=== PATIENT | male | born 1970 | race Caucasian/White ===

== ENCOUNTER 2023-11-17 04:13 | Emergency (ER) | payer MEDICAID, SELFPAY ==
[2023-11-17 04:19] VITALS: BP 148/93; PULSE 79; TEMP 36.6; O2SAT 97; BMI 25.8
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
--- NOTE | 2023-11-17 04:48 | ED.GENADUL1 ---
HPI HPI - General Adult General Chief complaint: Extremity Problem, Nontraumatic Stated complaint: BODY PAIN Time Seen by Provider: 11/17/23 04:16 Source: patient Mode of arrival: walk-in Limitations: no limitations Related Data Allergies Allergy/AdvReac Type Severity Reaction Status Date / Time tramadol Allergy Severe Difficulty Verified 11/17/23 04:19 Breathing Opioid HPI Opioid Management Most Recent Opioid Data: Last Pain Scale 8 11/17/23 04:47 Last MAR Pain Assessment 11/17/23 05:35 Exam Constitutional Vital Signs, click to edit/add: Last Vital Signs Temp 98 F 11/17/23 04:19 Pulse 79 11/17/23 04:19 Resp 18 11/17/23 04:19 BP 148/93 H 11/17/23 04:19 Pulse Ox 97 11/17/23 04:19 O2 Del Method Room Air 11/17/23 04:19 Course Vital Signs Vital signs: Vital Signs Temperature 98 F 11/17/23 04:19 Pulse Rate 79 11/17/23 04:19 Respiratory Rate 18 11/17/23 04:19 Blood Pressure 148/93 H 11/17/23 04:19 Pulse Oximetry 97 11/17/23 04:19 Oxygen Delivery Method Room Air 11/17/23 04:19 Temperature 98 F 11/17/23 04:19 Pulse Rate 79 11/17/23 04:19 Respiratory Rate 18 11/17/23 04:19 Blood Pressure 148/93 H 11/17/23 04:19 Pulse Oximetry 97 11/17/23 04:19 Oxygen Delivery Method Room Air 11/17/23 04:19 Discharge Plan Discharge Chief Complaint: Extremity Problem, Nontraumatic Clinical Impression: Acute postoperative pain of left hip Patient Disposition: Home, Self-Care Time of Disposition Decision: 05:10 Condition: Good Mode of Transportation: Private Vehicle Print Language: Liberian Instructions: Pain Management (ED), Narcotic Safety (ED), Arthralgia (ED), Non-pharmacological Pain Management Therapies for Adults (ED), Pain Management After Surgery (DC) Referrals: Sarah Zaman MD [Physician] - As soon as possible Physician,Non-Staff, [Primary Care Provider] - 1 week Discharge Date/Time: 11/17/23 05:37
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
[2023-11-17] MEDS: OXYCODONE HCL/ACETAMINOPHEN 5MG/325MG 2 TAB PO (05:35)
== END 2023-11-17 05:37 | disposition home or self-care (01) ==
PROVIDERS: Emergency Provider Emergency Medicine
DX: G89.18 Other acute postprocedural pain (principal); M25.552 Pain in left hip
CPT/HCPCS: 99283

== ENCOUNTER 2023-12-10 14:19 | Outpatient (RCR) | payer MEDICAID, SELFPAY | END 2023-12-11 12:15 | disposition home or self-care (01) | LOC: PT 14:19 | PROVIDERS: Visit Provider Orthopaedic Surgery | DX: S32.402D Unspecified fracture of left acetabulum, subsequent encounter for fracture with routine healing (principal); M75.102 Unspecified rotator cuff tear or rupture of left shoulder, not specified as traumatic ==

== ENCOUNTER 2024-05-04 12:54 | Outpatient (OUT) | payer OTHER, SELFPAY ==
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
== END 2024-05-04 12:55 | disposition home or self-care (01) ==
PROVIDERS: Visit Provider Nurse Practitioner
DX: M25.552 Pain in left hip (principal); Z51.81 Encounter for therapeutic drug level monitoring
CPT/HCPCS: G0463

== ENCOUNTER 2024-12-13 05:52 | Emergency (ER) | payer SELFPAY ==
--- OUTSIDE RECORDS SUMMARY | 2024-11-15 | XMS_ITS ---
Author Name Auto Generated Organization OHIP Care Team Providers Care Winder Helper Name Role Phone GLADYS, SOL Randle Referring Unavailable GLADYS, SOL Randle Primary Care Unavailable GLADYS, SOL Randle Referring Unavailable GLADYS, SOL Randle Primary Care Unavailable GLADYS, SOL Randle Primary Care Unavailable GLADYS, SOL Randle Referring Unavailable GLADYS, SOL Randle Primary Care Unavailable TIEN BURTON INSPECTOR PUBLICATIONS Attending UnavaTIEN Zuniga INSPECTOR PUBLICATIONS Referring Unavai FIDELIA Combs Attending Unavailable GLADYS, SOL Randle Attending Unavailable GLADYS, SOL Randle Attending Unavailable GLADYS, SOL Randle Primary Care Unavailable DALDAILY, Suraj BLAKELY Admitting Unavailabl e KELSIE, Suraj BLAKELY Attending Unavailabl e TIEN BURTON Referring Unavailab le TIEN BURTON Referring Unavailab MISAEL Bhatia Referring Unavailable GLADYS, SOL Randle Attending Unavailable GLADYS, SOL Randle Attending Unavailable DALAGIANNTHANIA, Suraj BLAKELY MD Attending Unavail able GLADYS, SOL Randle Referring Unavailable RADHA COUCH Attending Unavailable CHARISMAAGIANNTHANIA, Suraj BLAKELY MD Admitting Unavail able DALAGIANNTHANIA, Suraj BLAEKLY MD Attending Unavail able HAGER, BHARTI Andrew Referring Unavailable HAGER, BHARTI Andrew Referring Unavailable HAGER, BHARTI Andrew Referring Unavailable CORREA, FIDELIA Referring Unavailable CORREA, FIDELIA Referring Unavailable CORREA, FIDELIA Referring Unavailable PROBLEMS DATE TYPE CONDITION / CODE ATTENDING STATUS [facility] 08/15/2024 Unknown Other acute postprocedural pain / G89.18(ICD-10) Suraj IGLESIAS [facility] 07/03/2024 Unknown Other fatigue / R53.83(ICD-10) [facility] 05/15/2024 Unknown Encounter for screening for malignant neoplasm of prostate / Z12.5(ICD-10) [facility] 05/15/2024 Unknown Mild intermitten t asthma, uncomplicated / J45.20(ICD-10) [facility] 05/15/2024 Unknown Snoring / R06.83(ICD-10) [facility] 09/19/2023 Unknown Unspecified frac ture of facial bones, initial encounter for closed fracture / S02.92XA(ICD-10) [facility] 04/11/2024 Admitting diagnosis Unspecified fracture of facial bones, initial encounter for closed fracture / S02.92XA(ICD-10) [facility] 03/28/2024 Unknown Pain in left margarita ulder / M25.512(ICD-10) [facility] 09/18/2023 Unknown Unspecified frac ture of left acetabulum, initial encounter for closed fracture / S32.402A(ICD-10) [facility] 01/11/2024 Unknown Pain in left hip / M25.552(ICD-10) [facility] 01/11/2024 Unknown Weakness / R53.1(ICD-10) [facility] 01/11/2024 Unknown Stiffness of lef t hip, not elsewhere classified / M25.652(ICD-10) [facility] PROCEDURES No Procedure Records Found RESULTS PULMONARY FUNCTION Observed: 05/15/2024 6:41 PM Status: F [facility] [address] [id number] PULMONARY FUNCTION PATIENT NAME:NAOMI SONG Maria A :1970 MED REC NO:[id number] ROOM: ACCOUNT NO:[id number] ADMIT DATE:05/15/2024 PROVIDER:Alessandro Villasenor MD DATE OF PROCEDURE: 05/15/2024 SURGEON: Alessandro Villasenor MD REFERRING PHYSICIAN: Sol Cisse CNP Spirometry shows FVC is 4.89, 117% predicted. FEV1 is 2.82, 85% predicted which is within normal limits. FEV1/FVC ratio is consistent with obstructive ventilatory impairment. Postbronchodilator, there is significant improvement in both FEV1 and FVC and consistent with airway reversibility/bronchospasticity. Lung volume shows residual volume is 3.23, 159% predicted. Total lung capacity is 8.00, 121% predicted, consistent with mild to moderate airway trapping. Diffusion capacity is 32.19, 119% predicted, which is within normal limits. IMPRESSION: This pulmonary function test is consistent with obstructive ventilatory impairment with significant response to bronchodilator. Lung volume is consistent with mild to moderate airway trapping. Diffusion capacity is normal. Clinical correlation is recommended. ALESSANDRO VILLASENOR MD ISSA/VILLA Doc#: [id number] LIPID PROFILE Collected: 05/15/2024 8:53 AM Status: F Source: [facility] TYPE CODE TESTS RESULT OUT OF RANGE REFERENCE UNITS LAB CHOL(LOINC) Cholesterol 188 0-199 mg/dL Result Comment: Cholesterol Guidelines: <200 Desirable 200-240 Borderline >240 Undesirable LAB HDL(LOINC) Cholesterol,HDL 28 Low >40 mg/dL Result Comment: HDL Guidelines: <40 Undesirable 40-59 Borderline >59 Desirable LAB LDL(LOINC) Cholesterol,LDL 96 0-100 mg/dL Result Comment: LDL Guidelines: <100 Desirable 100-129 Near to/above Desirable 130-159 Borderline >159 Undesirable Direct (measured) LDL and calculated LDL are not interchangeable tests. LAB CHR(LOINC) Chol/HDL Ratio 6.7 LAB TRIG(LOINC) Triglycerides 319 High <150 mg/dL Result Comment: Triglyceride Guidelines: <150 Desirable 150-199 Borderline 200-499 High >499 Very high Based on AHA Guidelines for fasting triglyceride, December 2011. LAB VLDL(LOINC) Cholesterol,VLDL 64 High 1-30 mg/ dL Performed By: #### LIPR #### [facility] [address] [place] [address] Associate Business Analyst: Florian Salomon MD BASIC METABOLIC PROF Collected: 025 8:53 AM Status: F Source: [facility] TYPE CODE TESTS RESULT OUT OF RANGE REFERENCE UNITS LAB NA(LOINC) NA (Sodium) 143 136-145 mmol/L LAB K(LOINC) K (Potassium) 3.7 3.7-5.3 mmol/L LAB CL(LOINC) Chloride 106 98-107 mmol/L LAB HCO(LOINC) CO2 27 20-31 mmol/L LAB GAP(LOINC) Anion Gap 10 9-16 mmol/L LAB GLU(LOINC) Glucose 116 High 74-99 mg/dL LAB BUN(LOINC) BUN (Urea N) 14 6-20 mg/dL LAB CRE(LOINC) Creatinine 0.7 0.70-1.20 mg/dL LAB EGFR(LOINC) eGFR >90 >60 mL/min/1. 73m2 Result Comment: These results are not intended for use in patients <18 years of age. eGFR results are calculated without a race factor using the 2020 CKD-EPI equation. Careful clinical correlation is recommended, particularly when comparing to results calculated using previous equations. The CKD-EPI equation is less accurate in patients with extremes of muscle mass, extra-renal metabolism of creatine, excessive creatine ingestion, or following therapy that affects renal tubular secretion. LAB BUNCRE(LOINC) BUN/CRE Ratio 20 9-20 LAB CA(LOINC) Calcium 9.0 8.6-10.4 mg/dL Performed By: #### LIVMaria A, [facility] #### [facility] [address] [place] [address] Associate Business Analyst: Everardo Joseph MD #### PSAS #### [id number] [place] [address] Associate Business Analyst: Florian Salomon MD LIVER PROFILE Collected: 8:53 AM Status: F Source: [facility] TYPE CODE TESTS RESULT OUT OF RANGE REFERENCE UNITS LAB ALB(LOINC) Albumin 4.1 3.5-5.2 g/dL LAB ALP(LOINC) Alkaline Phos 93 40-129 U/L LAB ALT(LOINC) ALT 21 10-50 U/L LAB AST(LOINC) AST 17 10-50 U/L LAB TBIL(LOINC) Bilirubin, Total 0.3 0.00-1.20 mg/dL LAB DBILI(LOINC) Bilirubin, Direct <0.2 0.00-0.30 mg/dL LAB IBIL(LOINC) Bilirubin, Indirect Can not be calculated 0.0-1.0 mg/dL LAB TP(LOINC) Protein, Total 6.9 6.6-8.7 g/dL LAB AG(LOINC) Albumin/Glob Ratio 1.5 1.0-2.5 Performed By: #### LIVP, BMP #### [address] [place] [address] Associate Business Analyst: Everardo Joseph MD #### PSAS #### [address] [address] Associate Business Analyst: Florian Salomon MD PSA, SCREENING Collected: 05/15/2024 8:53 AM Status: F Source: [facility] TYPE CODE TESTS RESULT OUT OF RANGE REFERENCE UNITS LAB PSA(LOINC) Prostatic Spec. Ag 2.59 0.00-4.00 ng/mL Result Comment: The Norris E CLIA assay is used. Results obtained with different assay methods cannot be used interchangeably. Performed By: #### LIVP, BMP #### [address] [place] [address] Associate Business Analyst: Everardo Joseph MD #### PSAS #### [address] [address] Associate Business Analyst: Florian Salomon MD XR SINUSES (MIN 3 VIEWS ) Observed: 03/16 3:39 PM Status: F Source: [facility] EXAMINATION: THREE XRAY VIEWS OF THE SINUSES 04/11/2024 11:01 am COMPARISON: CT facial bones on 09/18/2023 HISTORY: ORDERING SYSTEM PROVIDED HISTORY: Closed extensive facial fractures, initial encounter TECHNOLOGIST PROVIDED HISTORY: pain to left side of face Reason for Exam: LEft sided faacial/ sinus pain. left facial fractures FINDINGS: Fractures of the right zygomatic arch, right maxillary sinus apex, ethmoid bones, left palate, bilateral medial and lateral pterygoid plates, and a left ZMC fracture (which also involves all left maxillary sinus woo) are better seen on the prior CT. A left maxillary fixator is in place. No new osseous injury is visualized. The paranasal sinuses appear grossly well aerated. IMPRESSION: Facial bone fractures are better depicted on the prior CT. Postoperative changes are evident. There is no evidence of new osseous injury. Interpreted by: Andrés Ricci MD Signed by: Andrés Ricci MD 04/12/24 Final result XR PELVIS (MIN 3 VIEWS) Observed: 2024 4:42 PM Status: F Source: [facility] History: 53-year-old male st atus post fixation left posterior wall acetabulum Comparison: 11/05/2023 Findings: 3 views of the pelvis and left hip (AP, lateral and Judet) in a skeletally mature patient showing redemonstration orthopedic hardware in the form of plate and screws the left posterior wall acetabulum. No evidence of hardware failure or loosening. No subluxation or dislocation. Alignment well-maintained Impression: Stable hardware to left acetabulum without complication Interpreted by: Misael Mcneil DO Signed by: Misael Mcneil DO 04/03/24 Final result ALLERGIES DATE TYPE / CODE NAME / CODE REACTION SEVERITY SOURCE Drug Class/936361244(S NOMED CT) NO ALLERGY INFORMATION AVAILABLE [facility] ENCOUNTERS ADMIT/DISCHARGE ACCOUNT NUMBER ADMITTING ENCOUNTER CLASS LOCATION SOURCE 11/15/2024 [id number] Ambulatory Building:[facility] 11/08/2024/11/09/19 [id number] Ambulatory Building[facility]10/04/19 [id number] Ambulatory Building:[facility] 09/19/2024 [id number] Ambulatory Building[facility]/15[facility]24/08/16/19 [id number] Suraj IGLESIAS Ambulatory Building:[facility] RRoom: ORPOOLRMBed: NONE [facility] 08/15/2024 [id number] Suraj IGLESIAS MD Ambulatory Building:[facility] ZPBORRoo: [id number]: [id number] [facility] 07/03/2024/07/04/19 25 [id number] Ambulatory Building:[facility] 06/27/2024/06/28/19 25 [id number] Ambulatory Building:[facility] 05/29/2024/05/30/19 25 [id number] Ambulatory Building:[facility] 05/15/2024 [id number] Ambulatory Building:[address] 05/15/2024/05/16/19 25 [id number] Ambulatory Building:[facility] 05/15/2024/05/16/19 25 [id number] Ambulatory Building:[facility] 04/25/2024/04/25/19 25 [id number] Ambulatory Building:[facility] 04/17/2024 [id number] Ambulatory Building:[address] 04/12/2024/04/11/19 25 [id number] Ambulatory Building:[facility] 04/11/2024/04/13/19 25 [id number] Ambulatory Building:[facility] 04/11/2024/04/13/19 25 [id number] Ambulatory Building:[facility] 03/28/2024 [id number] Ambulatory Building:[address] 03/27/2024/03/27/19 25 [id number] Ambulatory Building:[facility] 03/27/2024 [id number] Ambulatory Building:[facility] 03/16/2024 [id number] Ambulatory Building:[address] 02/14/2024 [id number] Amb[facility] 01/11/2024 [id number] Ambulatory Building:[address] PAYERS ENCOUNTER GUARANTOR PAYER SUBSCRIBER SOURCE 11/15/2024 NAOMI SONGDOB: [address], [place] [address]Qjl: (HP) Primary Insurance:Xogen TechnologiesPROGRESS WEST HOSPITALChangeTip Number: [id number] Date:2024-01-14 NAOMI SONGDOB: [id number], [place] [address]Rtz: (HP) [facility] 08/15/2024 NAOMI SONGDOB: [address], [place] [address]Rwr: (HP) Primary Insurance:[employer] BlueMessaging Number: [id number] Date:2024-01-14 NAOMI SONGDOB: [id number], [place] [address]Cmr: (HP) [facility] 07/03/2024 NAOMI SONGDOB: [address], [place] [address]Rui: (HP) Primary Insurance:Xogen TechnologiesPROGRESS WEST HOSPITALChangeTip Number: [id number] Date:2024-01-14 NAOMI SONGDOB: [id number], [place] [address]Rue: (HP) [facility] 05/15/2024 NAOMI SONG JR.: [facility] [address] [address]Zbj: (HP) Primary Insurance:[facility] MEDICAIDAndelaicy Number: [id number] Date:2024-01-14 NAOMI SONG JR.: [id number], [place] [address]Myy: (HP) [facility] 05/15/2024 NAOMI SONGDOB: [address], [place] [address]Wii: (HP) Primary Insurance:[facility] CENTERPolicy Number: [id number] Date:2024-01-14 NAOMI RAYB: [id number], [place] [address]Xms: (HP) [facility] 05/15/2024 NAOMI RAYB: [address], [place] [address]Xkj: (HP) Primary Insurance:[facility]Policy Number: [id number] Date:2024-01-14 NAOMI RAYB: [id number], [place] [address]Xao: (HP) [facility] 04/17/2024 NAOMI SONG JR.: [address], [place] [address]Kkb: (HP) Primary Insurance:[facility] MEDICAIDPolicy Number: [id number] Date:2024-01-14 NAOMI SONG JR.: [id number] [address], [place] [address]Ccu: (HP) [facility] 04/11/2024 NAOMI SONGDOB: [address], [place] [address]Lbd: (HP) Primary Insurance:[facility] [employer] [place] Number: [id number] Date:2024-01-14 NAOMI SONGDOB: [id number], [place] [address]Wge: (HP) [facility] 04/11/2024 NAOMI SONGDOB: [address], [place] [address]Xgr: (HP) Primary Insurance:[facility] [place] Number: [id number] Date:2024-01-14 NAOMI SONGDOB: [id number], [place] [address]Ssu: (HP) [facility] 03/28/2024 NAOMI SONG JR.: [address], [place] [address]Jwz: (HP) Primary Insurance:[employer] [place] MEDICAIDPolicy Number: [id number] Date:2024-01-14 NAOMI SONG JR.: [id number] [address], [place] [address]Soo: (HP) [facility] 03/27/2024 NAOMI SONGDOB: [address], [place] [address]Ksd: (HP) Primary Insurance:[facility] [place] Number: [id number] Date:2024-01-14 NAOMI SONGDOB: [id number], [place] [address]Gig: (HP) [facility] 03/27/2024 Secondary Insurance:[facility] [place] [place] Number: [id number] Date:2024-01-14 NAOMI SONGDOB: [id number] [place] [address]Sim: (HP) [facility] 03/16/2024 NAOMI SONG JR.: [address] [address]Wcc: (HP) Primary Insurance:[facility] MEDICAIDPolicy Number: [id number] Date:2024-01-14 NAOMI SONG JR.: [id number] [address]Ypy: (HP) [facility] 02/14/2024 NAOMI SONG JR.: [address] [address]Qsj: (HP) Primary Insurance:[facility] MEDICAIDPolicy Number: [id number] Date:2024-01-14 NAOMI SONG JR.: [id number] [address] [address]Bxz: (HP) [facility] 01/11/2024 NAOMI SONG JR.: [address] [address]Irc: (HP) Primary Insurance:[facility] MEDICAIDPolicy Number: [id number] Date:2024-01-14 NAOMI SONG JR.: [id number] [address]Owo: (HP) [facility]
--- NOTE | 2024-12-13 | CT_ITS ---
The [address] [address] Patient Name: NAOMI SONG MRN: [id number] date: 1970 Sex: M Assigned Patient Location: ER Current Patient Location: ER Accession/Order Number: [id number] Exam Date: 12/13/2024 07:43 Report Date: 12/13/2024 08:44 At the request of: SHERRON VALENZUELA MD Procedure: CT abdomen pelvis wo con CT ABDOMEN AND PELVIS WITHOUT CONTRAST CLINICAL DATA: Right flank pain COMPARISON: None Spiral axial unenhanced images were obtained through the abdomen and pelvis. This CT exam was performed using one or more following dose reduction techniques: Automated exposure control, adjustment of the mA and/or kV according to patient size, or use of iterative reconstruction technique. Limited cuts through the lung bases show multiple small bilateral calcified and noncalcified nodules. Evaluation of the intra-abdominal organs is slightly limited by the absence of contrast. The gallbladder is contracted and the wall appears thickened. No calcified gallstones are identified. No intrahepatic masses are seen. The spleen, pancreas and adrenal glands show no acute findings. There is mild bilateral perinephric fibrofatty stranding. There are no renal calculi or hydronephrosis. No ureteral dilatation or stones are noted. There is atherosclerotic plaque at the aorta, iliac and proximal visceral arteries. There are small retroperitoneal and mesenteric lymph nodes. There is subtle hazy density at the root of the mesentery and minor mesenteric panniculitis is not excluded. There is a tiny umbilical hernia containing fat. No ascites is identified. Small bowel loops are normal caliber. There is air and a small amount of stool within the colon, greater on the right. There are minor degenerative changes at the spine. There are no compression fractures or displacement. Images through the pelvis are slightly limited by streak artifact from hardware through the left acetabulum. The small bowel loops are normal caliber. There is no appendiceal inflammation. The distal colon is mostly decompressed. No diverticular disease is noted. The prostate is top normal in size. No urinary bladder abnormalities are seen given the degree of distention. There is no ascites. CT/CT abdomen pelvis wo con IMPRESSION: TINY CALCIFIED AND NONCALCIFIED PULMONARY NODULES. NO OBSTRUCTIVE UROPATHY OR STONE DISEASE. POSSIBLE MINOR MESENTERIC PANNICULITIS. NO OTHER ACUTE FINDINGS. Impression dictated by: Lou Abdullahi M.D. 12/13/2024 8:44 AM Dictation Location: [place] [address] Electronically authenticated by: [id number] Y Date: 12/13/2024 08:44
[2024-12-13 06:08] VITALS: PULSE 87; TEMP 36.9; O2SAT 94; BMI 31.9
[2024-12-13 06:38] LABS: SARS-CoV-2 Ag NEGATIVE (NEGATIVE)
--- NOTE | 2024-12-13 06:46 | ED.ABDPAIN1 ---
HPI - Abdominal Pain General Chief Complaint: Abdominal Pain Stated Complaint: SOB FLANK PAIN Time Seen by Provider: 12/13/24 06:33 Source: patient Mode of arrival: walk-in History of Present Illness HPI narrative: patient ill the past 3 days. complains of sinus pain, right flank pain and diarrhea. States he had a panic attack this AM also. Not short of breath. No fever. History of COPD-non smoker Related Data Home Medications ?Medication ?Instructions ?Recorded ?Confirmed No Known Home Medications 12/13/24 12/13/24 Allergies Allergy/AdvReac Type Severity Reaction Status Date / Time tramadol Allergy Severe Difficulty Verified 12/13/24 06:14 Breathing Review of Systems ROS Status of ROS 10 or more systems reviewed and unremarkable except as noted in history and below [facility] Social History Little interest or pleasure in doing things: not at all Feeling down, depressed, or hopeless: not at all Exam Constitutional Vital Signs, click to edit/add: Last Vital Signs Temp 98.4 F 12/13/24 06:08 Pulse 87 12/13/24 06:08 Resp 20 12/13/24 06:08 Pulse Ox 94 L 12/13/24 06:08 O2 Del Method Room Air 12/13/24 06:08 Common normals: no apparent distress, average body habitus, oriented x3, no limitations, healthy appearing, alert and well nourished [facility] Common normals: normocephalic and head/scalp atraumatic Other: left maxillary sinus tenderness Eye Common normals: EOMs intact bilaterally and conjunctivae normal Respiratory Common normals: normal respiratory effort, no retractions, no use of accessory muscles and clear to auscultation bilaterally Cardio Common normals: regular rate, regular rhythm, S1 normal heart sound and S2 normal heart sound GI Other: right CVA and flank tenderness Extremity Common normals: normal to inspection and full ROM Neuro Common normals: oriented x3, CN's II-XII intact bilaterally, moves all extremities and no focal motor deficits Psych Appearance: grossly normal Course Vital Signs Vital signs: Vital Signs Temperature 98.4 F 12/13/24 06:08 Pulse Rate 87 12/13/24 06:08 Respiratory Rate 20 12/13/24 06:08 Pulse Oximetry 94 L 12/13/24 06:08 Oxygen Delivery Method Room Air 12/13/24 06:08 Temperature 98.4 F 12/13/24 06:08 Pulse Rate 87 12/13/24 06:08 Respiratory Rate 20 12/13/24 06:08 Pulse Oximetry 94 L 12/13/24 06:08 Oxygen Delivery Method Room Air 12/13/24 06:08 MDM - Abdominal Pain MDM Narrative Medical decision making narrative: patient presenting with URI and abdominal/flank pain. workup initiated and care transferred at change of shift Lab Data Labs: Lab Results 12/13/24 Range/Units 06:20 Influenza Type A Ag Negative Influenza Type B Ag Negative SARS-CoV-2 Ag (CV2AG) Negative (NEGATIVE) Discharge Plan Discharge Patient Disposition: Still a Patient
--- NOTE | 2024-12-13 06:55 | XR_ITS ---
The [address] [address] Patient Name: NAOMI SONG MRN: [id number] date: 1970 Sex: M Assigned Patient Location: ER Current Patient Location: ER Accession/Order Number: [id number] Exam Date: 12/13/2024 07:43 Report Date: 12/13/2024 08:26 At the request of: SHERRON VALENZUELA MD Procedure: XR chest 2V PA AND LATERAL CHEST: CLINICAL HISTORY: cough, shortness of breath and wheezing for the past few days. History of tobacco use. COMPARISON: None There is no focal parenchymal consolidation, effusion or pneumothorax. The cardiac, hilar and mediastinal silhouettes are within normal limits. There is no vascular congestion. The visualized bony thorax is intact. There is slight dextroscoliotic curvature and endplate spurring. XR/XR chest 2V IMPRESSION: NO ACUTE CARDIOPULMONARY ABNORMALITY. Impression dictated by: Lou Abdullahi M.D. 12/13/2024 8:26 AM Dictation Location: [place] [address] Electronically authenticated by: [id number] Y Date: 12/13/2024 08:26
--- NOTE | 2024-12-13 06:55 | CT_ITS ---
The [address] [address] Patient Name: NAOMI SONG MRN: [id number] date: 1970 Sex: M Assigned Patient Location: ER Current Patient Location: Accession/Order Number: [id number] Exam Date: 12/13/2024 07:43 Report Date: 12/13/2024 08:36 At the request of: SHERRON VALENZUELA MD Procedure: CT facial bones wo con MAXILLOFACIAL CT WITHOUT CONTRAST: CLINICAL HISTORY: sinus pain, shortness of breath and wheezing COMPARISON: None TECHNIQUE: Spiral axial unenhanced images were obtained through the facial bones. Coronal and sagittal reconstructions were also reviewed. This CT exam was performed using one or more following dose reduction techniques: Automated exposure control, adjustment of the mA and/or kV according to patient size, or use of iterative reconstruction technique. FINDINGS: There are clefts through the anterior and lateral woo of the left maxillary sinus as well as the orbital floor, not significantly displaced. There is also deformity at the nasal bone, zygomatic arch and lateral pterygoid process on the left side. These findings might relate to an old injury since no history of trauma was currently provided. No bony destruction is identified. There is appropriate development and pneumatization of the paranasal sinuses. There is mucosal thickening at both maxillary sinuses, inferior frontal and minimal at the anterior sphenoid sinus. There is opacification of some of the ethmoid air cells bilaterally. No fluid levels are noted. The ostiomeatal complexes are partially obscured, greater on the right. There is subtle anterior nasal septal deviation to the right. The intraorbital contents are unremarkable. There are shotty lymph nodes in the field of view. CT/CT facial bones wo con IMPRESSION: CHRONIC SINUSITIS, DESCRIBED. MULTIPLE LEFT-SIDED FRACTURES. THESE APPEAR TO BE OLD THOUGH CLINICAL CORRELATION IS RECOMMENDED GIVEN THE LIMITED HISTORY. Impression dictated by: Lou Abdullahi M.D. 12/13/2024 8:36 AM Dictation Location: [place] [address] Electronically authenticated by: [id number] Y Date: 12/13/2024 08:36
[2024-12-13 07:13] LABS: Hematocrit 42.8 % (42.0-54.0); Hemoglobin 15.4 g/dL (14.0-18.0); Immature Granulocytes Abs Auto 0.09 10^3/uL (0.00-0.03); Immature Granulocytes Pct Auto 1.4 % (0.0-0.5); Lymphocytes Absolute Auto 1.8 10^3/uL (1.2-3.8); Mean Corpuscular HGB Conc 36.0 g/dL (29.9-35.2); Mean Corpuscular Hemoglobin 31.9 pg (25.9-34.0); Mean Corpuscular Volume 88.6 fL (80.0-94.0); Platelet Count 185 10^3/uL (150-450); Red Blood Count 4.83 10^6/uL (4.70-6.10); White Blood Count 6.5 10^3/uL (4.0-11.0)
[2024-12-13] MEDS: 0.9 % SODIUM CHLORIDE 1,000 ML 999 ML IV (07:16)
[2024-12-13 07:36] LABS: Alanine Aminotransferase 25 U/L (16-63); Albumin Globulin Ratio 1.0; Albumin Level 3.6 g/dL (3.4-5.0); Alkaline Phosphatase 88 U/L (46-116); Anion Gap 15.2; Aspartate Amino Transferase 13 U/L (15-37); Blood Urea Nitrogen 14.0 mg/dL (7.0-18.0); Calcium 8.5 mg/dL (8.5-10.1); Carbon Dioxide 25.6 mmol/L (21.0-32.0); Chloride 107 mmol/L (98-107); Estimated GFR (African America >60 (>=60 mL/min/1.73m^2); Estimated GFR (Non-African Ame >60 (>=60 mL/min/1.73m^2); Globulin 3.5 g/dL; Glucose 94 mg/dL (74-106); Lipase 29.0 U/L (16.0-77.0); Potassium 3.8 mmol/L (3.5-5.1); Sodium 144 mmol/L (136-145); Total Protein 7.1 g/dL (6.4-8.2)
[2024-12-13 07:39] LABS: Lactate/Lactic Acid 1.4 mmol/L (0.4-2.0)
[2024-12-13 08:04] LABS: Glucose Urine UA NEGATIVE (NEGATIVE)
[2024-12-13 08:25] LABS: Cast Seen? NONE SEEN #/LPF (NONE SEEN); Crystals Seen? None Seen #/HPF (None Seen)
[2024-12-13] MEDS: KETOROLAC TROMETHAMINE 30 MG/ML VIAL 15 MG IVP (10:06)
== END 2024-12-13 10:16 | disposition home or self-care (01) ==
PROVIDERS: Emergency Provider Internal Medicine
DX: B34.9 Viral infection, unspecified (principal); R91.8 Other nonspecific abnormal finding of lung field; J44.9 Chronic obstructive pulmonary disease, unspecified
CPT/HCPCS: 36415; 70486; 71046; 74176; 80053; 81001; 83605; 83690; 85025; 87804; 87811; 96361; 96374; 99285; J1885